=== PATIENT | male | born 1995 | race Two or more races ===

== ENCOUNTER 2024-10-16 21:01 | Emergency (ER) | payer BC, SELFPAY ==
[2024-10-16 21:01] VITALS: BMI 26.5
--- NOTE | 2024-10-16 21:26 | PD.EDSOB ---
ED SOB =RME/HPI General Chief Complaint: Shortness of Breath/Dyspnea Stated Complaint: FEELS SHORT OF BREATH Time Seen by Provider: 10/16/24 21:26 Arrival date/time: 10/16/24 21:01 RME / HPI RME / HPI Narrative: This section includes all my notes and documentations, including HPI, PE, and ED course. Mp Christine MD HPI: 29 y/o male presents to ED c/o shortness of breath with cough x 3 days. No productive cough. Patient admits to childhood asthma and has not had an inhaler in 10 years. He used his daughter's inhaler earlier today. Denies fever. No other complaints. ROS: All negative except as documented in HPI. Physical Exam: General: Alert and oriented. No acute distress when remaining still. Eyes: Conjunctivae and lids clear. ENT: No nasal congestion. Neck: Supple. Heart: RRR. Lungs: No respiratory distress noted. Severely decreased air movement with BL wheezing. Skin: Warm and dry. Neuro: Alert and oriented X 3. I reviewed all diagnostic test results. My interpretation of the chest x-ray is NAD. At this point, diagnoses include asthma exacerbation. Treatment here included Albuterol/Ipratroprium Duoneb, Methylprednisolone. Significant improvement noted. Recommend outpatient treatment. Based on my best medical judgment, made decision no further evaluation or treatment indicated at this time. Patient understands and agrees to the discharge instructions customized and printed, see below. Discharge instructions from Dr. Christine: --After evaluation, you are treated for asthma attack. --No physical exertion for 3 days to help rest the lungs. ?No smoking or exposure to smoking or pets or dust or cold or humidity. --Prednisone to help decrease the swelling in the airways. --Albuterol 2 puffs every 4-6 hours for 3 days to help keep the airways open. Then as needed for cough or shortness of breath. --See a private doctor on 10/17/2024 for recheck. Ask for a referral to see a lung specialist to make sure there is no other serious underlying lung condition. --Seek immediate medical care with worsening or with any concerns. Mp Christine MD Related Data Home Medications ?Medication ?Instructions ?Recorded ?Confirmed Albuterol (Proventil) 17 gm IH EVER 4 HOURS ##0 08/18/07 Previous Rx's ?Medication ?Instructions ?Recorded albuterol sulfate 90 mcg/actuation 2 puff inhalation Q6H PRN 10/16/24 aerosol inhaler shortness of breath or wheezing #8.5 grams prednisone 20 mg tablet 20 mg PO BID 3 days #6 tabs 10/16/24 Allergies Allergy/AdvReac Type Severity Reaction Status Date / Time No Known Allergies Allergy Verified 12/24/20 10:10 Review of Systems Review of Systems Systems Reviewed: All systems reviewed, normal except as documented Past Medical History Past Medical History RESPIRATORY: Positive Asthma (Childhood) Social History SMOKING STATUS: Never smoker ED Exam Narrative Physical exam: Refer to HPI above Course Course Course Narrative: CXR is ordered for determining the etiology of?shortness of breath. Quality Measures none Orders Category Date Time Status XR chest 1V portable Stat Exams 10/16/24 21:28 Completed Albuterol/Ipratr Rt Sandra [Duoneb Rt Sandra] Med 10/16/24 21:28 Discontinued 6 ml INH X1 ONE MethylPREDNISolone.* [SoluMEDROL Inj] Med 10/16/24 21:28 Discontinued 125 mg IM X1 ONE predniSONE Med 10/16/24 22:01 Discontinued 60 mg PO X1 ONE Vital Signs Vital signs: Vital Signs Pulse Rate 60 10/16/24 21:40 Respiratory Rate 18 10/16/24 21:40 Pulse Oximetry (%) 100 10/16/24 21:40 Shortness of Breath / Dyspnea MDM Narrative MDM Narrative:: Scribe Attestation: Divine Albarran am scribing for and in the presence of Dr. Christine. Provider Notation: Although this document has been carefully reviewed, there may still be some phonetic and other typographical errors.? These errors are purely grammatical due to imperfections in the software program and should not be construed in any way to? compromise the substance of the patient's medical care during this visit. 29 y/o male with Hx of asthma presents to ED c/o shortness of breath with cough x 3 days. Patient data External records reviewed:: [facility] previous records (No recent ED records available for review.) Clinical information provided by:: patient Social determinants that could affect healthcare access:: none Patient has the following chronic illnesses:: Asthma How is presenting disease/condition affected by chronic disease/condition?: exacerbated by Evaluation data The following diagnostics were reviewed and interpreted by me:: radiology exam(s) Lab and/or radiology exams considered but not ordered:: None Interpretation Summary: I reviewed all diagnostic test results. My interpretation of the chest x-ray is NAD. Medications / Prescriptions Medications or Prescriptions considered but not ordered:: None Medication administrations:: Medication Administration History Discontinued Medications Albuterol/Ipratropium (Albuterol/Ipratropium (Duoneb) Rt Sandra 3 Ml Nebu) 6 ml INH X1 ONE Stop: 10/16/24 21:29 Last Admin: 10/16/24 21:39 Dose: 6 ml Documented By: DM Methylprednisolone Sodium Succinate (Methylprednisolone Sod Succ 62.5 Mg/Ml 2ml Vial) 125 mg IM X1 ONE Stop: 10/16/24 21:29 Last Admin: 10/16/24 21:36 Dose: 125 mg Documented By: KF Prednisone (Prednisone 20 Mg Tablet) 60 mg PO X1 ONE Stop: 10/16/24 22:02 Last Admin: 10/16/24 22:22 Dose: 60 mg Documented By: DB Albuterol/Ipratroprium Duoneb, Methylprednisolone. Consultations Consultation(s) initiated? (list below): No Diagnosis Shortness of Breath Differential Diagnosis: asthma with exacerbation, pulmonary embolism and other (URI, LRI) Most likely diagnosis given after review of the tests above:: Asthma Attack Admission Indicated Admission indicated?: not indicated Explain why admission is indicated or not indicated:: With significant improvement, there was no indication for admission. Admission Request Was there a request for admission?: No Disposition Plan Disposition Plan: Discharge Discharge Attestation Discharge Attestation: The patient and all family members were given an opportunity to ask questions and understood the discharge instructions. Discharge instructions specifically effects, indications for sooner follow up or return to the emergency department, and the expected course of current diagnosis. Patient condition: Stable Discharge Plan Plan Patient Disposition: HOME (Self Care) Prescriptions/Referrals Prescriptions/Med Rec: New prednisone 20 mg tablet 20 mg PO BID 3 Days Qty: 6 0RF Taper: Prednisone Taper 20 mg DAILY for 2 Days and 0 Hour 10 mg DAILY for 2 Days and 0 Hour 5 mg DAILY for 7 Days and 0 Hour albuterol sulfate 90 mcg/actuation HFA aerosol inhaler 2 puff inhalation Q6H PRN (Reason: shortness of breath or wheezing) Qty: 8.5 0RF No Action Albuterol (Proventil) 17 GM AER.REFILL 17 gm IH EVER 4 HOURS Qty: 0 Patient Comments: TAKE 2 PUFFS EVERY 4-6 HOURS NEEDED Referrals: No Primary/Family,Physician [Primary Care Provider] - In 1 week Problem List Clinical Impression: Asthma attack Patient/Caregiver Discharge Instructions Discharge Activity: activity as tolerated Education Materials: ED Asthma, Acute (Adult) Additional Instructions: Discharge instructions from Dr. Christine: --After evaluation, you are treated for asthma attack. --No physical exertion for 3 days to help rest the lungs. ?No smoking or exposure to smoking or pets or dust or cold or humidity. --Prednisone to help decrease the swelling in the airways. --Albuterol 2 puffs every 4-6 hours for 3 days to help keep the airways open. Then as needed for cough or shortness of breath. --See a private doctor on 10/17/2024 for recheck. Ask for a referral to see a lung specialist to make sure there is no other serious underlying lung condition. --Seek immediate medical care with worsening or with any concerns. Print Language: Arabic Stand Alone Forms: [employer] Award Info., Patient Portal Info Letter
--- NOTE | 2024-10-16 21:28 | XR_ITS ---
Examination: PA chest single view TECHNIQUE: Upright PA chest single view Date and time: October 16, 2024 2156 hours INDICATIONS: Shortness of breath today. FINDINGS: Normal heart size Lungs are clear. Osseous structures are intact IMPRESSION: No active disease
[2024-10-16] MEDS: MethylPREDNISolone SOD SUCC 62.5 MG/ML 2ML VIAL 125 MG IM (21:36)
[2024-10-16] MEDS: ALBUTEROL/IPRATROPIUM (Duoneb) RT SOL 3 ML NEBU 6 ML INH (21:39)
[2024-10-16 21:40] VITALS: PULSE 60; RESP 18; O2SAT 100
[2024-10-16] MEDS: predniSONE 20 MG TABLET 60 MG PO (22:22)
== END 2024-10-16 22:50 | disposition home or self-care (01) ==
PROVIDERS: Emergency Provider Emergency Medicine
DX: J45.909 Unspecified asthma, uncomplicated (principal)
CPT/HCPCS: 71045; 94640; 96372; 99283; A9270; J2919; J7512